=== PATIENT | male | born 1965 | race Caucasian/White ===

== ENCOUNTER 2020-04-04 09:36 | Outpatient (CLI) | payer BC | END 2020-04-04 23:59 | disposition home or self-care (01) | LOC: WOUND 09:36 | PROVIDERS: ATTEND Podiatrist Foot & Ankle Surgery | DX: E11.621 Type 2 diabetes mellitus with foot ulcer (principal); L97.512 Non-pressure chronic ulcer of other part of right foot with fat layer exposed; L03.115 Cellulitis of right lower limb; L84 Corns and callosities; I87.8 Other specified disorders of veins; F41.9 Anxiety disorder, unspecified; Z79.82 Long term (current) use of aspirin | CPT/HCPCS: 11042; 99205 ==

== ENCOUNTER 2020-04-11 11:44 | Emergency (ER) | payer BC ==
[~2020-04-11] VITALS: Ht 190.5 cm; Wt 134.5 kg
[2020-04-11 11:47] VITALS: BP 155/91
[2020-04-11] MEDS ORDERED: FURO-93 PO (12:07)
[2020-04-11] MEDS ORDERED: GABA400C PO (12:07)
[2020-04-11] MEDS ORDERED: METF500T17 PO (12:07)
[2020-04-11] MEDS ORDERED: SERT100T32 PO (12:07)
[2020-04-11] MEDS ORDERED: FURO40TA6 PO (12:07)
[2020-04-11] MEDS ORDERED: ASPI-496 PO (12:07)
[2020-04-11] MEDS ORDERED: CLOP75TA52 PO (12:07)
[2020-04-11 12:37] LABS: BASOPHILS # (AUTO) 0.08 x10^3/uL (0-0.1); BASOPHILS % (AUTO) 1 % (0-1); EOSINOPHILS # (AUTO) 0.35 x10^3/uL (0-0.4); EOSINOPHILS % (AUTO) 3 % (1-7); LYMPHOCYTES # (AUTO) 1.86 x10^3/uL (1-3.4); LYMPHOCYTES % (AUTO) 17 % (22-44); MD NO; MEAN CORPUSCULAR HEMOGLOBIN 30.6 pg (27.5-34.5); MEAN CORPUSCULAR HGB CONC 33.8 g/dL (33.2-36.2); MEAN CORPUSCULAR VOLUME 90.5 fL (81-97); MEAN PLATELET VOLUME 8.8 fL (7.4-10.4); MONOCYTES # (AUTO) 0.89 x10^3/uL (0.2-0.8); MONOCYTES % (AUTO) 8 % (2-9); NEUTROPHILS # (AUTO) 7.68 x10^3/uL (1.8-6.8); NEUTROPHILS % (AUTO) 71 % (42-75); PLATELET COUNT 220 x10^3/uL (130-400); RED BLOOD COUNT 5.27 x10^6/uL (4.38-5.82); RED CELL DISTRIBUTION WIDTH 13.2 % (9.4-14.8)
[2020-04-11 12:38] LABS: HCT (SEDRATE) 47.9 % (39.2-51.8)
[2020-04-11 12:47] LABS: ALBUMIN 3.7 g/dL (3.4-5.0); ANION GAP 7 mmol/L (5-15); CALCIUM 9.7 mg/dL (8.5-10.1); CHLORIDE 102 mmol/L (98-107); CREATININE 0.91 mg/dL (0.7-1.3)
== END 2020-04-11 13:58 | disposition home or self-care (01) ==
LOC: ED 12:32
DX: L03.115 Cellulitis of right lower limb (principal); E11.65 Type 2 diabetes mellitus with hyperglycemia
CPT/HCPCS: 36415; 80048; 82040; 84550; 85025; 85651; 99284

== ENCOUNTER → 2020-04-11 | Outpatient (CLI) | payer BC ==
[~2020-04-11] MED LIST: ASPI-496 PO; CLOP75TA52 PO; FURO-93 PO; FURO40TA6 PO; GABA400C PO; METF500T17 PO; SERT100T32 PO
== END | disposition home or self-care (01) ==
LOC: WOUND 10:18
PROVIDERS: ATTEND Podiatrist Foot & Ankle Surgery
DX: E11.621 Type 2 diabetes mellitus with foot ulcer (principal); L97.512 Non-pressure chronic ulcer of other part of right foot with fat layer exposed; L03.115 Cellulitis of right lower limb; L84 Corns and callosities; I87.8 Other specified disorders of veins; F41.9 Anxiety disorder, unspecified; Z79.82 Long term (current) use of aspirin
CPT/HCPCS: 99214